=== PATIENT | male | born 1980 | race African-American/Black ===

== ENCOUNTER 2017-09-01 06:50 | Emergency (ER) | payer SELFPAY ==
[~2017-09-01] VITALS: Ht 167.6 cm; Wt 82.0 kg
[2017-09-01] MEDS ORDERED: BACL-141 PO (07:00)
[2017-09-01] MEDS ORDERED: ACET-2178 PO (07:00)
[2017-09-01] MEDS ORDERED: KETOROLAC 60MG/2ML VIAL IM ONE (10:00)
[2017-09-01 10:37] LABS: CLARITY URINE CLOUDY (CLEAR); COLOR URINE YELLOW (YELLOW); KETONES URINE NEGATIVE (NEGATIVE); LEUKOCYTE ESTERASE URINE 2+ (NEGATIVE); NITRITE URINE NEGATIVE (NEGATIVE); OCCULT BLOOD URINE NEGATIVE (NEGATIVE); PH URINE 8.5 (4.5-8.0); PROTEIN URINE NEGATIVE (NEGATIVE); SPECIFIC GRAVITY URINE 1.024 (1.005-1.030)
[2017-09-01] MEDS ORDERED: ACETAMINOPHEN 325MG TABLET PO ONE (13:15)
[2017-09-01] MEDS ORDERED: BACLOFEN 10MG TABLET PO ONE (14:45)
[2017-09-01 16:01] VITALS: BP 132/72
== END 2017-09-01 16:59 | disposition home or self-care (01) ==
LOC: ER 06:50
DX: S39.012A Strain of muscle, fascia and tendon of lower back, initial encounter (principal); S30.0XXA Contusion of lower back and pelvis, initial encounter; W05.0XXA Fall from non-moving wheelchair, initial encounter; Y93.89 Activity, other specified; Y92.89 Other specified places as the place of occurrence of the external cause; Y99.8 Other external cause status; Z98.890 Other specified postprocedural states
CPT/HCPCS: 81001; 96372; 99283; J1885; Z7610